=== PATIENT | female | born 1990 ===

== ENCOUNTER 2020-03-18 10:43 | Emergency (ER) | payer OTHER ==
[~2020-03-18] VITALS: Ht 165.1 cm; Wt 86.2 kg
[2020-03-18] MEDS ORDERED: SYNTHROID175 MCG (11:19)
[2020-03-18] MEDS ORDERED: GLIMEPIRIDE1 MG (11:20)
== END 2020-03-18 15:37 | disposition home or self-care (01) ==
LOC: ER 10:43
DX: N39.0 Urinary tract infection, site not specified (principal)

== ENCOUNTER 2020-06-12 18:08 | Emergency (ER) | payer OTHER ==
[~2020-06-12] VITALS: Ht 160 cm; Wt 83.9 kg
[~2020-06-12 18:08] MED LIST: GLIMEPIRIDE1 MG; SYNTHROID175 MCG
[2020-06-12] MEDS ORDERED: KETO10TA2 PO (21:31)
[2020-06-12] MEDS ORDERED: CIPRO500 MG PO (21:31)
== END 2020-06-12 21:57 | disposition home or self-care (01) ==
LOC: ER 18:08
DX: N20.9 Urinary calculus, unspecified (principal)

== ENCOUNTER 2021-02-01 19:41 | Emergency (ER) | payer OTHER ==
[~2021-02-01] VITALS: Ht 160 cm; Wt 84.8 kg
[~2021-02-01 19:41] MED LIST changes: +CIPRO500 MG PO; +KETO10TA2 PO
[2021-02-01] MEDS ORDERED: ZITHROMAX500 MG PO (22:18)
== END 2021-02-01 22:56 | disposition home or self-care (01) ==
LOC: ER 19:41
DX: B34.9 Viral infection, unspecified (principal); Z11.52 Encounter for screening for COVID-19

== ENCOUNTER 2022-11-21 18:20 | Emergency (ER) | payer OTHER ==
[~2022-11-21] VITALS: Ht 160 cm; Wt 88.0 kg
[~2022-11-21 18:20] MED LIST changes: +ZITHROMAX500 MG PO
== END 2022-11-21 21:19 | disposition home or self-care (01) ==
LOC: ER 18:20
DX: L03.818 Cellulitis of other sites (principal); Z88.1 Allergy status to other antibiotic agents; Z91.013 Allergy to seafood